=== PATIENT | female | born 1965 | race Caucasian/White ===

== ENCOUNTER 2019-11-05 06:37 | Emergency (ER) | payer MEDICAID ==
[~2019-11-05] VITALS: Ht 160 cm; Wt 95.0 kg
[2019-11-05] MEDS ORDERED: MECLIZINE CHEWABLE 25 MG TAB ONE (07:24)
[2019-11-05] MEDS ORDERED: ONDANSETRON 2MG/ML, 2ML ONE (07:24)
[2019-11-05] MEDS ORDERED: ONDANSETRON 2MG/ML, 2ML IVPush ONE (07:30)
[2019-11-05] MEDS ORDERED: SODIUM CHLORIDE FLUSH 10ML SYR IVF ONE (07:30)
[2019-11-05] MEDS ORDERED: MECLIZINE CHEWABLE 25 MG TAB PO ONE (07:30)
[2019-11-05] MEDS ORDERED: SODIUM CHLORIDE 0.9% 1,000ML IVBOLUS ONE (07:30)
[2019-11-05 07:47] LABS: RAPID INFLUENZA A Negative (Negative); RAPID INFLUENZA B Negative (Negative)
[2019-11-05 07:59] VITALS: BP_DIAS 78
[2019-11-05 07:59] LABS: BASOPHILS # (AUTO) 0.05 x10^3/uL (0-0.1); BASOPHILS % (AUTO) 0 % (0-1); EOSINOPHILS # (AUTO) 0.51 x10^3/uL (0-0.4); EOSINOPHILS % (AUTO) 5 % (1-7); LYMPHOCYTES # (AUTO) 3.34 x10^3/uL (1-3.4); LYMPHOCYTES % (AUTO) 32 % (22-44); MD NO; MEAN CORPUSCULAR HEMOGLOBIN 31.7 pg (27.0-34.8); MEAN CORPUSCULAR HGB CONC 33.6 g/dL (32.4-35.8); MEAN CORPUSCULAR VOLUME 94.3 fL (80-100); MEAN PLATELET VOLUME 8.1 fL (7.4-10.4); MONOCYTES # (AUTO) 0.78 x10^3/uL (0.2-0.8); MONOCYTES % (AUTO) 8 % (2-9); NEUTROPHILS # (AUTO) 5.78 x10^3/uL (1.8-6.8); NEUTROPHILS % (AUTO) 55 % (42-75); PLATELET COUNT 317 x10^3/uL (130-400); RED BLOOD COUNT 4.51 x10^6/uL (3.82-5.3); RED CELL DISTRIBUTION WIDTH 13.1 % (9.6-15.2)
--- NOTE | 2019-11-05 07:59 | NUR ---
PT LAYING ON GURNEY WITH EYES CLOSED, MEDICATED PER EMAR, RESPONDS APPROP TO STAFF. NAD & STATES DIZZINESS & NAUSEA ARE IMPROVED, COMFORT MEASURES PROVIDED, CALL LIGHT WITHIN REACH, AT BS.
[2019-11-05 08:02] LABS: MICROSCOPIC NOT IND
[2019-11-05 08:06] LABS: CULTURE INDICATED? NO
[2019-11-05 08:07] LABS: ALBUMIN 3.8 g/dL (3.4-5.0); ANION GAP 11 mmol/L (5-15); CALCIUM 8.8 mg/dL (8.5-10.1); CHLORIDE 111 mmol/L (98-107); CREATININE 0.98 mg/dL (0.55-1.02)
[2019-11-05 08:11] LABS: TROPONIN I < 0.015 ng/mL (0.000-0.045)
[2019-11-05 08:52] VITALS: BP_SYST 117
--- NOTE | 2019-11-05 08:53 | NUR ---
Patient given discharge instructions and Rx, they have confirmed that they understand the instructions. Patient ambulatory with steady gait.
== END 2019-11-05 08:54 | disposition home or self-care (01) ==
LOC: EDBD 06:37 → ED 08:48
DX: R42 Dizziness and giddiness (principal); H65.01 Acute serous otitis media, right ear; R11.0 Nausea; Z87.891 Personal history of nicotine dependence
CPT/HCPCS: 36415; 71046; 80048; 81003; 82040; 84484; 85025; 87400; 93005; 96361; 96374; 99284; J2405; J7030

== ENCOUNTER 2020-03-15 14:44 | Emergency (ER) | payer MEDICAID ==
[~2020-03-15] VITALS: Ht 157.5 cm; Wt 103.6 kg
[2020-03-15 15:31] LABS: BASOPHILS # (AUTO) 0.05 x10^3/uL (0-0.1); BASOPHILS % (AUTO) 1 % (0-1); EOSINOPHILS # (AUTO) 0.67 x10^3/uL (0-0.4); EOSINOPHILS % (AUTO) 7 % (1-7); LYMPHOCYTES # (AUTO) 3.98 x10^3/uL (1-3.4); LYMPHOCYTES % (AUTO) 42 % (22-44); MD NO; MEAN CORPUSCULAR HEMOGLOBIN 31.1 pg (27.0-34.8); MEAN CORPUSCULAR HGB CONC 32.9 g/dL (32.4-35.8); MEAN CORPUSCULAR VOLUME 94.5 fL (80-100); MEAN PLATELET VOLUME 8.4 fL (7.4-10.4); MONOCYTES # (AUTO) 0.62 x10^3/uL (0.2-0.8); MONOCYTES % (AUTO) 7 % (2-9); NEUTROPHILS # (AUTO) 4.24 x10^3/uL (1.8-6.8); NEUTROPHILS % (AUTO) 44 % (42-75); PLATELET COUNT 332 x10^3/uL (130-400); RED BLOOD COUNT 4.41 x10^6/uL (3.82-5.3); RED CELL DISTRIBUTION WIDTH 13.4 % (9.6-15.2)
[2020-03-15 15:42] LABS: ALBUMIN 3.7 g/dL (3.4-5.0); ANION GAP 9 mmol/L (5-15); CALCIUM 8.7 mg/dL (8.5-10.1); CHLORIDE 109 mmol/L (98-107)
[2020-03-15 15:47] LABS: ALANINE AMINOTRANSFERASE 28 U/L (12-78); ALKALINE PHOSPHATASE 65 U/L (45-117); BILIRUBIN,TOTAL 0.5 mg/dL (0.2-1.0); CREATININE 0.84 mg/dL (0.55-1.02); TOTAL PROTEIN 7.2 g/dL (6.4-8.2); TROPONIN I < 0.015 ng/mL (0.000-0.045)
[2020-03-15] MEDS ORDERED: ONDANSETRON ODT 4 MG ONE (16:16)
[2020-03-15] MEDS ORDERED: OXYcodone/APAP 5/325MG TABLET ONE (16:16)
[2020-03-15] MEDS ORDERED: OXYcodone/APAP 5/325MG TABLET PO ONE (16:30)
[2020-03-15] MEDS ORDERED: ONDANSETRON ODT 4 MG PO ONE (16:30)
[2020-03-15 17:41] LABS: TROPONIN I < 0.015 ng/mL (0.000-0.045)
[2020-03-15 18:09] VITALS: BP 133/78
== END 2020-03-15 18:12 | disposition home or self-care (01) ==
LOC: ED 15:19
DX: R07.89 Other chest pain (principal); R94.31 Abnormal electrocardiogram [ECG] [EKG]; Z87.891 Personal history of nicotine dependence; Z90.710 Acquired absence of both cervix and uterus; Z95.0 Presence of cardiac pacemaker
CPT/HCPCS: 36415; 71045; 80053; 84484; 85025; 93005; 99285; Q0162

== ENCOUNTER 2020-06-17 20:03 | Emergency (ER) | payer MEDICAID ==
[~2020-06-17] VITALS: Ht 160 cm; Wt 100.0 kg
[2020-06-17 20:21] VITALS: BP 114/75
--- NOTE | 2020-06-17 20:34 | NUR ---
Pt reprots her right knee gave out going up two steps in her kitchen. Pt reports recently diagnosed with osteoarthritis. Ic pack given to patient.
[2020-06-17] MEDS ORDERED: HYDROcodone/APAP 5/325 TABLET ONE (20:50)
[2020-06-17] MEDS ORDERED: HYDROcodone/APAP 5/325 TABLET PO ONE (21:00)
--- NOTE | 2020-06-17 21:05 | NUR ---
Pt still in imaging.
--- NOTE | 2020-06-17 22:26 | NUR ---
Patient/Caregiver given discharge instructions and they have confirmed that they understand the instructions. Patient ambulatory with steady gait. CRUTCH TEACHING PROVIDED BY BUDDY KIM
== END 2020-06-17 22:29 | disposition home or self-care (01) ==
LOC: ED 20:49
DX: M25.561 Pain in right knee (principal); Z87.891 Personal history of nicotine dependence
CPT/HCPCS: 29505; 99283

== ENCOUNTER 2021-01-14 07:45 | Emergency (ER) | payer MEDICAID ==
[~2021-01-14] VITALS: Ht 160 cm; Wt 100.0 kg
--- NOTE | 2021-01-14 07:58 | NUR ---
PT BIB FOR HAVING ANXIETY ATTACK AFTER BEING WITHOUT PSYCH MED FOR 5 DAYS. PT W/ HX OF ANXIEY AND DEPRESSION. DENIES SI/HI. DR. MANRIQUEZ TO BEDSIDE FOR EVALUATION. PT ATTACHED TO MONITORS. VSS.
--- NOTE | 2021-01-14 08:40 | NUR ---
pt medicated per emar, pt states she feels more anxious. this rn educated pt to give medication time to work. vss. will continue to monitor.
--- NOTE | 2021-01-14 09:04 | NUR ---
pt sitting up in bed talking to friend at bedside. observed to be calm. vss. saleh.
[2021-01-14 09:24] VITALS: BP 115/80
--- NOTE | 2021-01-14 09:30 | NUR ---
Patient/Caregiver given discharge instructions and they have confirmed that they understand the instructions. Patient ambulatory with steady gait.
== END 2021-01-14 09:30 | disposition home or self-care (01) ==
LOC: ED 08:48
DX: F41.1 Generalized anxiety disorder (principal); F41.0 Panic disorder [episodic paroxysmal anxiety]; R06.02 Shortness of breath
CPT/HCPCS: 99283

== ENCOUNTER 2021-03-24 09:50 | Observation (INO) | payer MEDICAID ==
[2021-03-24] VITALS (7 sets, daily range): BP systolic 116–142; BP diastolic 80–99
[~2021-03-24] VITALS: Ht 162.6 cm; Wt 102.7 kg
--- NOTE | 2021-03-24 10:01 | NUR ---
pt woke up in bed after perviously waking up and starting day. pt states she doesn't remeber getting back to bed and thinks she passed out and now has dizziness. PT ATTACHED TO MONITORS. VSS. [place]. POSTIONED TO COMFORT AWAITING ORDERS.
[2021-03-24] MEDS ORDERED: MECLIZINE CHEWABLE 25 MG TAB PO ONE (10:30)
[2021-03-24] MEDS ORDERED: SODIUM CHLORIDE FLUSH 10ML SYR IVF ONE (10:30)
[2021-03-24] MEDS ORDERED: MECLIZINE CHEWABLE 25 MG TAB ONE (10:44)
--- NOTE | 2021-03-24 10:47 | NUR ---
PT EVALUATED BY DR. CALDERA. PT UP TO BATHROOM FOR UA WITH STEADY GAIT. VSS. [place].
--- NOTE | 2021-03-24 10:59 | NUR ---
PT MEDICATED PER EMAR.
[2021-03-24 11:09] LABS: BASOPHILS % (AUTO) 1 % (0-1); EOSINOPHILS % (AUTO) 3 % (1-7); LYMPHOCYTES % (AUTO) 36 % (22-44); MEAN CORPUSCULAR HEMOGLOBIN 31.9 pg (27.0-34.8); MEAN CORPUSCULAR HGB CONC 33.7 g/dL (32.4-35.8); MEAN PLATELET VOLUME 8.1 fL (7.4-10.4); MONOCYTES % (AUTO) 9 % (2-9); NEUTROPHILS % (AUTO) 52 % (42-75); PLATELET COUNT 401 x10^3/uL (130-400); RED BLOOD COUNT 4.51 x10^6/uL (3.82-5.3); RED CELL DISTRIBUTION WIDTH 13.8 % (9.6-15.2)
[2021-03-24 11:13] LABS: MICROSCOPIC NOT IND
[2021-03-24 11:21] LABS: ALBUMIN 3.9 g/dL (3.4-5.0); ANION GAP 6 mmol/L (5-15); CALCIUM 8.8 mg/dL (8.5-10.1); CHLORIDE 111 mmol/L (98-107)
[2021-03-24 11:27] LABS: ALANINE AMINOTRANSFERASE 31 U/L (12-78); ALKALINE PHOSPHATASE 75 U/L (45-117); BILIRUBIN,TOTAL 0.3 mg/dL (0.2-1.0); CREATININE 0.86 mg/dL (0.55-1.02); TOTAL PROTEIN 7.9 g/dL (6.4-8.2); TROPONIN I < 0.015 ng/mL (0.000-0.045)
--- NOTE | 2021-03-24 12:43 | NUR ---
PT RESTING COMFORTABLY. UP FOR RECHECK. VSKarely. [place].
--- NOTE | 2021-03-24 13:19 | NUR ---
REPORT CALLED TO EPI
[2021-03-24] MEDS ORDERED: CLON1TAB11 PO (14:17)
[2021-03-24] MEDS ORDERED: PARO40TA61 PO (14:17)
[2021-03-24] MEDS ORDERED: ONDANSETRON ODT 4 MG PO PRN (14:30)
[2021-03-24] MEDS ORDERED: ONDANSETRON 2MG/ML, 2ML IVPush PRN (14:30)
[2021-03-24] MEDS ORDERED: ACETAMINOPHEN 325 MG TABLET ONE (20:50)
[2021-03-24] MEDS ORDERED: PAROXETINE 20 MG TABLET PO SCH (21:00)
[2021-03-24] MEDS ORDERED: PAROXETINE 40 MG HOMEMEDPO SCH (21:00)
[2021-03-24] MEDS ORDERED: ACETAMINOPHEN 325 MG TABLET PO PRN (21:00)
[2021-03-25 01:10] VITALS: BP 129/88
[2021-03-25 07:29] VITALS: BP 127/92
[2021-03-25] MEDS ORDERED: PARO20TA4 PO (08:11)
[2021-03-25] MEDS ORDERED: PAROXETINE 20 MG TABLET PO SCH (09:00)
[2021-03-25 14:51] VITALS: BP 115/80
[2021-03-25] MEDS ORDERED: LORA10TA41 PO (17:31)
== END 2021-03-25 18:11 | disposition home or self-care (01) ==
LOC: ED 10:23 → EDIP 12:44 → INTOOBSV 12:44 → SUATTDRO 13:18 → 4WST 13:52
PROVIDERS: ADMIT Family Medicine; ATTEND Family Medicine
DX: R55 Syncope and collapse (principal); F43.10 Post-traumatic stress disorder, unspecified; F41.1 Generalized anxiety disorder; R42 Dizziness and giddiness; E66.9 Obesity, unspecified; M19.90 Unspecified osteoarthritis, unspecified site; F12.90 Cannabis use, unspecified, uncomplicated; F40.00 Agoraphobia, unspecified; Z90.710 Acquired absence of both cervix and uterus; Z79.899 Other long term (current) drug therapy
CPT/HCPCS: 36415; 80053; 81003; 83605; 84484; 85025; 87040; 93005; 93306; 93356; 93880; 99284; G0378